=== PATIENT | male | born 1965 | race African-American/Black ===

== ENCOUNTER 2017-04-04 13:40 | Emergency (ER) | payer SELFPAY | END 2017-04-04 16:32 | disposition home or self-care (01) | LOC: D.ER 13:40 | DX: Z03.89 Encounter for observation for other suspected diseases and conditions ruled out (principal) ==

== ENCOUNTER 2019-05-02 13:29 | Emergency (ER) | payer MEDICAID ==
[2019-05-02 13:33] VITALS: BMI 25.9
[2019-05-02] MEDS ORDERED: BACLOFEN20 M1 PO (15:33)
[2019-05-02] MEDS ORDERED: VOLTAREN75 MG PO (15:33)
[2019-05-02 16:10] VITALS: BP 116/81
[2019-07-27 10:45] VITALS: BMI 27.9
== END 2019-05-02 16:10 | disposition home or self-care (01) ==
LOC: D.ER 13:29
DX: M62.838 Other muscle spasm (principal); M54.5 Low back pain

== ENCOUNTER 2019-07-26 19:14 | Inpatient (IN) | payer MEDICAID ==
[~2019-07-26] VITALS: Ht 175.3 cm; Wt 85.7 kg
[~2019-07-26 19:14] MED LIST: BACLOFEN20 M1 PO; VOLTAREN75 MG PO
[2019-07-26 20:58] VITALS: BP 125/79
[2019-07-26 21:12] LABS: BASOPHILS 0.1 % (0-2); EOSINOPHILS 0.4 % (0-7); HEMATOCRIT 40.9 % (42.0-54.0); HEMOGLOBIN 14.3 g/dL (13.5-17.5); IMMATURE GRANULOCYTES 0.3 % (0-5); LYMPHOCYTES 10.3 % (15-50); MCH 30.4 pg (26.0-34.0); MEAN PLATELET VOLUME 9.3 fL (7.4-10.4); MONOCYTES 7.7 % (2-11); NEUTROPHILS 81.2 % (40-80); PLATELET COUNT 272 10x3/uL (130-400); RDW 13.2 % (11.5-14.5); WBC 16.7 10x3/uL (4.8-10.8)
[2019-07-26 21:30] VITALS: BP 126/77
[2019-07-26 21:31] LABS: ALBUMIN 3.6 g/dL (3.4-5.0); ANION GAP 10.6 mmol/L (8-16); BILIRUBIN - TOTAL 0.54 mg/dL (0.2-1.3); CALCIUM 9.2 mg/dL (8.5-10.1); CARBON DIOXIDE 28.1 mmol/L (21.0-32.0); CREATININE - SERUM 1.1 mg/dL (0.6-1.3); POTASSIUM - SERUM 3.7 mmol/L (3.5-5.1); PROTEIN - SERUM 7.8 g/dL (6.4-8.2)
[2019-07-26 22:30] VITALS: BP 124/82
[2019-07-26 23:00] VITALS: BP 123/79
[2019-07-27 00:27] VITALS: BP 111/74; BMI 27.9
[2019-07-27 04:17] VITALS: BP 110/70
[2019-07-27 05:59] LABS: BASOPHILS 0.1 % (0-2); EOSINOPHILS 0 % (0-7); HEMATOCRIT 38.8 % (42.0-54.0); HEMOGLOBIN 13.5 g/dL (13.5-17.5); IMMATURE GRANULOCYTES 0.2 % (0-5); LYMPHOCYTES 4.5 % (15-50); MCH 29.9 pg (26.0-34.0); MCHC 34.8 g/dL (31.0-37.0); MCV 85.8 fL (80.0-100.0); MEAN PLATELET VOLUME 9.4 fL (7.4-10.4); NEUTROPHILS 94.2 % (40-80); PLATELET COUNT 284 10x3/uL (130-400); RBC 4.52 10x6/uL (4.20-6.10); RDW 13.2 % (11.5-14.5); WBC 14.2 10x3/uL (4.8-10.8)
[2019-07-27 06:33] LABS: ALBUMIN 3.1 g/dL (3.4-5.0); ALKALINE PHOSPHATASE 75 U/L (46-116); ALT (SGPT) 16 U/L (10-68); BILIRUBIN - TOTAL 0.39 mg/dL (0.2-1.3); CALC OSMOLALITY 280 mosm/kg (275-300); CARBON DIOXIDE 24.2 mmol/L (21.0-32.0); CHLORIDE - SERUM 108 mmol/L (98-107); GLUCOSE 130 mg/dL (74-106); PHOSPHOROUS 4.1 mg/dL (2.5-4.9); PROTEIN - SERUM 7.2 g/dL (6.4-8.2); SODIUM 140 mmol/L (136-145); UREA NITROGEN 12 mg/dL (7-18); eGFR NON AFRICAN AMERICAN 83 mL/min (90-120)
--- NOTE | 2019-07-27 07:10 | NUR ---
REPORT RECEIVED FROM PROCESS INSPECTOR AND PATIENT CARE ASSUMED. PATIENT LAYING IN BED ON BACK AWAKE , ALERT AND ORIENTED X 4. PATIENT DENIES ANY NEEDS OR PAIN AND IS VERY TALKATIVE. WILL CONTINUE WITH PLAN OF CARE. SR UP X 2 BED IN LOW POSITION AND CALL LIGHT IN REACH.
[2019-07-27 09:26] LABS: MONO NEGATIVE (NEGATIVE)
[2019-07-27 09:39] VITALS: BP 95/69
[2019-07-27 10:45] VITALS: Ht 175.3 cm; Wt 85.7 kg
[2019-07-27 11:05] VITALS: BP 101/63
--- NOTE | 2019-07-27 11:36 | NUR ---
PATIENT LAYING IN BED TALKING ON TELEPHONE. PATIENT REFUSES SHOWER. PATIENT IS STABLE AND VSS. PATIENT DENIES ANY NEEDS OR PAIN. WILL CONTINUE TO MONITOR. SR UP X 2 BED IN LOW POSITION AND CALL LIGHT IN REACH.
[2019-07-27 13:07] LABS: APPEARANCE CLEAR (CLEAR); BILIRUBIN NEGATIVE (NEGATIVE); COLOR YELLOW (YELLOW); GLUCOSE 1000 mg/dL (NEGATIVE); KETONE NEGATIVE (NEGATIVE); NITRITE NEGATIVE (NEGATIVE); PROTEIN NEGATIVE (NEGATIVE); SPECIFIC GRAVITY 1.025 (1.005-1.020); UROBILINOGEN NORMAL (NORMAL)
--- NOTE | 2019-07-27 17:46 | NUR ---
PATIENT LAYING IN BED ON BACK TALKING ON PHONE. PATIENT IS STABLE AND VSS. PATIENT DENIES ANY NEEDS OR PAIN. WILL CONTINUE TO MONITOR. SR UP X 2 BED IN LOW POSITION AND CALL LIGHT IN REACH.
[2019-07-27 18:27] VITALS: BP 96/63
--- NOTE | 2019-07-27 19:04 | MORECARE ---
CASE MANAGEMENT DISCHARGE SUMMARY PATIENT: CAROLINA MELTON UNIT: [id number] ADM DATE: 07/26/19 AGE: 53 : 63 SEX: M ROOM/BED: D.1213 AUTHOR: CATARINA,DOC PHYSICIAN: REFERRING PHYSICIAN: MARLIN SANCHEZ MD DATE OF SERVICE: 07/27/19 Discharge Plan Patient Name: CAROLINA MELTON Facility: [facility]:[place] : 1965 Planned Disposition: Home Anticipated Discharge Date: Discharge Date: Expected LOS: Initial Reviewer: [email or web address] Initial Review Date: 07/27/2019 Generated: 07/27/19 8:04 pm Comments DCP- Discharge Planning Updated by [email or web address]: Ludmila Huang on 07/27/19 6:[address] Patient Name: CAROLINA MELTON Admission Status: ER Accout number: [id number] Admission Date: 07-26-2019 : 1965 Admission Diagnosis: Attending: MARLIN SANCHEZ Current LOS: 1 Anticipated DC Date: Planned Disposition: Home Primary Insurance: MEDICAID [place] Discharge Planning Comments: CM met with patient at bedside after explaining CM role and obtaining verbal consent. Patient lives at home alone where he is independent with his care and plans to return there upon discharge. Patient feels this would be a safe discharge. CM discussed availability / needs of home health and medical equipment. Patient denies any discharge needs at this time. Patient states he will have his family drive him home upon discharge. CM will continue to follow and assist as needed with discharge planning / needs. Supervisor Last Model Department: Ludmila Huang DCA - Discharge Planning Initial Assessment Updated by [email or web address]: Ludmila Huang on 07/27/19 7:00 pm * Is the patient Alert and Oriented? Yes * How many steps to enter\exit or inside your home? * PCP NO PCP * Pharmacy [facility] * Preadmission Environment Home with Family * ADLs Independent * Equipment None * List name and contact numbers for known caregivers / representatives who currently or will assist patient after discharge: DEVANTE - [phone] [facility] [phone] * Verbal permission to speak to the caregivers and representatives has been obtained from the patient. Yes * Community resources currently utilized None * Additional services required to return to the preadmission environment? No * Can the patient safely return to the preadmission environment? Yes * Has this patient been hospitalized within the prior 30 days at any hospital? No Patient Name: CAROLINA MELTON Page [id number] at 1904 All edits/amendments must be made on the electronic document DICTATION DATE: 07/27/191903 OCTAVE BOARD ASSEMBLER: LING 07/27/191903 RPT#: [id number] DC DATE: STATUS: ADM IN [facility] [address] [place] [address] END OF REPORT
--- NOTE | 2019-07-27 19:15 | NUR ---
EVENING ROUNDS COMPLETE. PT LAYING IN BED, NO SIGNS OF DISTRESS. PT C/O PAIN 4/10 IN HIS THROAT. PT WISHES TO NOT TAKE ANYTHING FOR PAIN AT THIS TIME. CL IN REACH, BED IN LOWEST POSITION. CONT WITH POC.
[2019-07-28 03:37] VITALS: BP 118/65
[2019-07-28 06:08] LABS: HEMATOCRIT 37.8 % (42.0-54.0); HEMOGLOBIN 13.1 g/dL (13.5-17.5); MCH 29.8 pg (26.0-34.0); MCHC 34.7 g/dL (31.0-37.0); MCV 86.1 fL (80.0-100.0); MEAN PLATELET VOLUME 9.5 fL (7.4-10.4); PLATELET COUNT 319 10x3/uL (130-400); RBC 4.39 10x6/uL (4.20-6.10); RDW 13.4 % (11.5-14.5); WBC 24.9 10x3/uL (4.8-10.8)
[2019-07-28 06:15] LABS: ANION GAP 13.8 mmol/L (8-16); CALCIUM 8.8 mg/dL (8.5-10.1); CARBON DIOXIDE 24.9 mmol/L (21.0-32.0); CREATININE - SERUM 1.1 mg/dL (0.6-1.3); POTASSIUM - SERUM 3.7 mmol/L (3.5-5.1)
--- NOTE | 2019-07-28 07:11 | NUR ---
REPORT RECEIVED FROM ROOFER GYPSUM AND PATIENT CARE ASSUMED. PATIENT LAYING IN BED ON BACK WITH EYES CLOSED AND BREATHING EVENLY. WILL CONTINUE WITH PLAN OF CARE. SR UP X 2 BED IN LOW POSITION AND CALL LIGHT IN REACH.
[2019-07-28 09:29] LABS: LYMPHOCYTES 8 % (15-50); MONOCYTES 8 % (2-11); NEUTROPHILS 82 % (40-80); PLATELET ESTIMATE NORMAL; ROULEAUX OCC
[2019-07-28] MEDS ORDERED: CLEOCIN HCL300 MG PO (10:22)
--- NOTE | 2019-07-28 11:09 | MORECARE ---
CASE MANAGEMENT DISCHARGE SUMMARY PATIENT: CAROLINA MELTON UNIT: [id number] ADM DATE: 07/26/19 AGE: 53 : 63 SEX: M ROOM/BED: D.1213 AUTHOR: CATARINA,DOC PHYSICIAN: REFERRING PHYSICIAN: MARLIN SANCHEZ MD DATE OF SERVICE: 07/28/19 Discharge Plan Patient Name: CAROLINA MELTON Facility: [facility]:[place] : 1965 Planned Disposition: Home Anticipated Discharge Date: Discharge Date: Expected LOS: Initial Reviewer: [email or web address] Initial Review Date: 07/27/2019 Generated: 07/28/19 12:09 pm Comments DCP- Discharge Planning Updated by [email or web address]: Rani Anne on 07/28/19 10:[address] Discharge has been canceled due to positive blood cultures. Further testing will be required prior to discharge. Rani Anne RN, [facility] DCP- Discharge Planning Updated by [email or web address]: Ludmila Huang on 07/27/19 6:[address] Patient Name: CAROLINA MELTON Admission Status: ER Accout number: [id number] Admission Date: 07-26-2019 : 1965 Admission Diagnosis: Attending: MARLIN SANCHEZ Current LOS: 1 Anticipated DC Date: Planned Disposition: Home Primary Insurance: MEDICAID [place] Discharge Planning Comments: CM met with patient at bedside after explaining CM role and obtaining verbal consent. Patient lives at home alone where he is independent with his care and plans to return there upon discharge. Patient feels this would be a safe discharge. CM discussed availability / needs of home health and medical equipment. Patient denies any discharge needs at this time. Patient states he will have his family drive him home upon discharge. CM will continue to follow and assist as needed with discharge planning / needs. Director Talent Management: Ludmila Huang DCPIA - Discharge Planning Initial Assessment Updated by [email or web address]: Ludmila Huang on 07/27/19 7:00 pm * Is the patient Alert and Oriented? Yes * How many steps to enter\exit or inside your home? * PCP NO PCP * [facility]acy [facility] * Preadmission Environment Home with Family * ADLs Independent * Equipment None * List name and contact numbers for known caregivers / representatives who currently or will assist patient after discharge: DEVANTE [phone] [facility] [phone] * Verbal permission to speak to the caregivers and representatives has been obtained from the patient. Yes * Community resources currently utilized None * Additional services required to return to the preadmission environment? No * Can the patient safely return to the preadmission environment? Yes * Has this patient been hospitalized within the prior 30 days at any hospital? No Last DP export: 07/27/19 6:04 p Patient Name: CAROLINA MELTON Page 36553 at 1109 All edits/amendments must be made on the electronic document DICTATION DATE: 07/28/191108 MICROSTRATEGY DEVELOPER: LING 07/28/191108 RPT#: [id number] DC DATE: STATUS: ADM IN [facility] [address] [place] [address] END OF REPORT
[2019-07-28 12:09] LABS: EBV - EARLY ANTIGEN AB IGG 14.5 U/mL (0.0-8.9); EBV VIRAL CAPSID AB IGM <36.0 U/mL (0.0-35.9)
[2019-07-28 14:47] VITALS: BP 113/68
--- NOTE | 2019-07-28 19:20 | NUR ---
EVENING ROUNDS COMPLETE, PT LAYING IN BED, NO SIGNS OF DISTRESS. VSS, NO C/O PAIN AT THIS TIME. CL IN REACH, BED IN LOWEST POSITION. CONT WITH POC.
[2019-07-28 20:25] VITALS: BP 116/78
[2019-07-29 04:24] VITALS: BP 110/60
[2019-07-29 06:11] LABS: CALC OSMOLALITY 287 mosm/kg (275-300); CALCIUM 8.6 mg/dL (8.5-10.1); CARBON DIOXIDE 26.8 mmol/L (21.0-32.0); CHLORIDE - SERUM 107 mmol/L (98-107); CREATININE - SERUM 0.9 mg/dL (0.6-1.3); GLUCOSE 119 mg/dL (74-106); POTASSIUM - SERUM 3.7 mmol/L (3.5-5.1); SODIUM 143 mmol/L (136-145); UREA NITROGEN 18 mg/dL (7-18); eGFR NON AFRICAN AMERICAN > 90 mL/min (90-120)
[2019-07-29 06:41] LABS: BASOPHILS 0 % (0-2); EOSINOPHILS 0 % (0-7); HEMATOCRIT 35.7 % (42.0-54.0); HEMOGLOBIN 12.3 g/dL (13.5-17.5); IMMATURE GRANULOCYTES 0.5 % (0-5); LYMPHOCYTES 3.3 % (15-50); MCH 29.6 pg (26.0-34.0); MCHC 34.5 g/dL (31.0-37.0); MEAN PLATELET VOLUME 9.8 fL (7.4-10.4); MONOCYTES 2.6 % (2-11); NEUTROPHILS 93.6 % (40-80); PLATELET COUNT 321 10x3/uL (130-400); RBC 4.15 10x6/uL (4.20-6.10); RDW 13.3 % (11.5-14.5); WBC 23.1 10x3/uL (4.8-10.8)
--- NOTE | 2019-07-29 07:10 | NUR ---
REPORT RECIEVED FROM RADIUS GRINDER AND PATIENT CARE ASSUMED. PATIENT LAYING IN BED ON BACK WITH EYES CLOSED AND BREATHING EVENLY. PATIENT IS STABLE AND VSS. WILL CONTINUE TO MONITOR. SR UP X 2 BED IN LOW POSITION AND CALL LIGHT IN REACH.
--- NOTE | 2019-07-29 13:00 | NUR ---
PATIENT UP TO SHOWER . COMPLETE LINEN CHANGE COMPLETED WITH CLEAN CLOTHES .
--- NOTE | 2019-07-29 17:22 | NUR ---
PATIENT IS STABLE AND VSS. AT BS. WILL CONTINUE TO MONITOR. SR UP X 2 BED IN LOW POSITION AND CALL LIGHT IN REACH.
[2019-07-29 19:38] VITALS: BP 93/62
[2019-07-30] VITALS: BP 109/67
[2019-07-30 04:00] VITALS: BP 101/56
[2019-07-30 06:57] LABS: BASOPHILS 0.1 % (0-2); EOSINOPHILS 0.1 % (0-7); HEMATOCRIT 35.7 % (42.0-54.0); IMMATURE GRANULOCYTES 1.2 % (0-5); LYMPHOCYTES 15.9 % (15-50); MCH 29.3 pg (26.0-34.0); MCHC 33.6 g/dL (31.0-37.0); MCV 87.3 fL (80.0-100.0); MEAN PLATELET VOLUME 9.5 fL (7.4-10.4); MONOCYTES 10.7 % (2-11); PLATELET COUNT 286 10x3/uL (130-400); RBC 4.09 10x6/uL (4.20-6.10); RDW 13.6 % (11.5-14.5)
[2019-07-30 07:03] LABS: WBC 14.3 10x3/uL (4.8-10.8)
[2019-07-30 07:08] VITALS: BP 99/70
--- NOTE | 2019-07-30 07:20 | NUR ---
PT RESTING IN BED, VSS AND WNL. SHIFT ASSESSMENT PERFORMED. DENIES ANY NEEDS AT THIS TIME, WILL CONT TO FOLLOW POC
[2019-07-30 07:23] LABS: CALC OSMOLALITY 287 mosm/kg (275-300); CALCIUM 8.1 mg/dL (8.5-10.1); CARBON DIOXIDE 28.9 mmol/L (21.0-32.0); CHLORIDE - SERUM 108 mmol/L (98-107); CREATININE - SERUM 0.9 mg/dL (0.6-1.3); GLUCOSE 106 mg/dL (74-106); POTASSIUM - SERUM 3.4 mmol/L (3.5-5.1); SODIUM 144 mmol/L (136-145); UREA NITROGEN 14 mg/dL (7-18); eGFR NON AFRICAN AMERICAN > 90 mL/min (90-120)
--- NOTE | 2019-07-30 10:35 | NUR ---
NUTRITION FOLLOW UP: INTEVIEW: Patient stated he has a good appetite. He denied N/V/D/C. He stated that it hurts to swallow due to sore throat. Denied need for softer diet. DIET: Regular Diet PO INTAKE: 100% x 4 meals WT: 07/27- 189 lbs, no new wt BM: x 1 on 07/27 MEDS: Protonix IVF: NaCl @ 50 ml/hr LABS: K-3.4(L), Chloride-108(H), Calcium-8.1(L) GOALS: PO intake >/= 75%, BM q 3 days, stable wt DHS, and nutrition labs WNL Will continue to monitor closely Clinical Dietitian Following
--- NOTE | 2019-07-30 10:47 | EC ---
PATIENT:CAROLINA MELTON DATE OF SERVICE: 07/26/19 SEX: M MEDICAL RECORD: [id number] DATE OF : [birth year] LOCATION:D.M3 D.120 AGE OF PATIENT: 53 ADMISSION DATE: 07/26/19 REFERRING PHYSICIAN: INTERPRETING PHYSICIAN: EDILSON YUSUF MD ECHOCARDIOGRAM REPORT ECHO CHARGES 4 ECHO COMPLETE Date: 07/28/19 CLINICAL DIAGNOSIS: R/O VEGETATION ECHOCARDIOGRAPHIC MEASUREMENTS (adult normal given) AC root (d.<3.7cm) 3.7 cm LV Septum d (<1.2 cm> 1.1 cm Valve Excursion 2.1 cm LV Septum (systole) 1.9 cm Left Atria (s.<4.0cm> 3.5 cm LVPW d(<1.2cm) 1.3 cm RV (d.<2.3cm) 2.3 cm LVPW (sytole) 1.9 cm LV diastole(<5.6CM) 5.9 cm MV E-F(>70mm/sec) cm LV systole 3.4 cm LVOT Diameter 2.0 cm MV exc.(>10mm) cm Est.ejection fraction (50-75%) % DOPPLER: LVIT cm/sec A 79.0 cm/sec E 94.0 cm/sec LA cm/sec RVSP 26.4 mmHg LVOT 126 cm/sec AOP1/2T m/s Asc. Ao 188 cm/sec RVOT 74.0 cm/sec RA cm/sec PA 117 cm/sec AV Gradient Peak 14.1 mmHg AV Mean 6.8 mmHg AV Area 2.2 cm MV Gradient Peak 6.5 mmHg MV Mean 3.0 mmHg MV Area cm COMMENTS: Commercial Makeup Artist: 1 CHAO MCLEANOE Manager Configuration: 1 Dr. Yusuf TAPE# PACS Pericardial Effusion N DATE OF SERVICE: ECHOCARDIOGRAM FINDINGS: 1. Left ventricular chamber size is mildly dilated. Left ventricular systolic function is preserved at 60%. 2. Left atrium, right atrium, and right ventricular chamber sizes are within normal limits. 3. Valvular structures have normal structure and motion. 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 4. Doppler interrogation reveals moderate mitral regurgitation, mild tricuspid regurgitation, no other valvular insufficiency or stenosis. Pulmonary systolic pressure is estimated at 26 mmHg. 5. No evidence of pericardial effusion or left ventricular thrombus. TRANSINT:[id number] Voice Confirmation ID: [id number] DOCUMENT ID: [id number] EDILSON YUSUF MD at 1047 CC: [id number] DICTATION DATE: 07/28/19 1551 BAND SINGER: 07/28/19 2217 ADM IN [facility] [address] [place] [address]
--- NOTE | 2019-07-30 12:20 | NUR ---
PT RESTING IN BED, FAMILY AT BEDSIDE, WILL CONT TO FOLLOW POC
--- NOTE | 2019-07-30 18:00 | NUR ---
PT RESTING IN BED, DENIES ANY NEEDS AT THIS TIME, WILL CONT TO FOLLOW POC
[2019-07-30 20:02] VITALS: BP 97/73
[2019-07-30 23:50] VITALS: BP 90/60
[2019-07-31 03:38] VITALS: BP 116/80
[2019-07-31 07:08] LABS: CALC OSMOLALITY 290 mosm/kg (275-300); CALCIUM 8.6 mg/dL (8.5-10.1); CHLORIDE - SERUM 110 mmol/L (98-107); CREATININE - SERUM 0.9 mg/dL (0.6-1.3); GLUCOSE 110 mg/dL (74-106); SODIUM 145 mmol/L (136-145); UREA NITROGEN 15 mg/dL (7-18); eGFR NON AFRICAN AMERICAN > 90 mL/min (90-120)
[2019-07-31 07:27] LABS: HEMATOCRIT 37.9 % (42.0-54.0); MCH 29.7 pg (26.0-34.0); MCHC 34.3 g/dL (31.0-37.0); MCV 86.7 fL (80.0-100.0); MEAN PLATELET VOLUME 9.6 fL (7.4-10.4); PLATELET COUNT 295 10x3/uL (130-400); RBC 4.37 10x6/uL (4.20-6.10); RDW 13.4 % (11.5-14.5); WBC 11.9 10x3/uL (4.8-10.8)
--- NOTE | 2019-07-31 07:32 | NUR ---
AM ROUNDS- PT IN BED, A/O X4, RESP EVEN AND NONLABORED ON RA. LT WRIST IV INFUISNG NS AT 50CC/HR. BP A LITTLE HIGH, PT DENIES TAKING ANYTHING FOR HIS BP AT HOME. PT DENIES ANY NEED AT THIS TIME. CALL LIGHT IN REACH, NAD NOTED, WILL CONTINUE TO MONITOR.
[2019-07-31 07:41] VITALS: BP 140/91
[2019-07-31 08:24] LABS: EOSINOPHILS 1 % (0-7); LYMPHOCYTES 33 % (15-50); MONOCYTES 2 % (2-11); NEUTROPHILS 63 % (40-80); PLATELET ESTIMATE NORMAL
[2019-07-31 13:27] VITALS: BP 127/79
--- NOTE | 2019-07-31 15:35 | MORECARE ---
CASE MANAGEMENT DISCHARGE SUMMARY PATIENT: CAROLINA MELTON UNIT: [id number] ADM DATE: 07/26/19 AGE: 53 : 63 SEX: M ROOM/BED: D.1209 AUTHOR: LINDA ELMORE PHYSICIAN: REFERRING PHYSICIAN: MARLIN SANCHEZ MD DATE OF SERVICE: 07/31/19 Discharge Plan Patient Name: CAROLINA MELTON Facility: [facility]:[place] : 1965 Planned Disposition: Home Anticipated Discharge Date: Discharge Date: Expected LOS: Initial Reviewer: [email or web address] Initial Review Date: 07/27/2019 Generated: 07/31/19 4:35 pm Comments DCP- Discharge Planning Updated by [email or web address]: Suzette Stark on 07/31/19 2:[address] Patient Name: CAROLINA MELTON Encounter No: [id number] : 1965 Primary Insurance: MEDICAID [place] Anticipated DC Date: Planned Disposition: Home External Planned Provider: : DCP follow-up note: Patient and family in agreement with discharge plan. No changes to plan. Case management will follow and assist as needed. Suzette Stark DCP- Discharge Planning Updated by [email or web address]: Rani Anne on 07/28/19 10:[address] Discharge has been canceled due to positive blood cultures. Further testing will be required prior to discharge. Rani Anne RN, [facility] DCP- Discharge Planning Updated by [email or web address]: Ludmila Huang on 07/27/19 6:[address] Patient Name: CAROLINA MELTON Admission Status: ER Accout number: [id number] Admission Date: 07-26-2019 : 1965 Admission Diagnosis: Attending: MARLIN SANCHEZ Current LOS: 1 Anticipated DC Date: Planned Disposition: Home Primary Insurance: MEDICAID [place] Discharge Planning Comments: CM met with patient at bedside after explaining CM role and obtaining verbal consent. Patient lives at home alone where he is independent with his care and plans to return there upon discharge. Patient feels this would be a safe discharge. CM discussed availability / needs of home health and medical equipment. Patient denies any discharge needs at this time. Patient states he will have his family drive him home upon discharge. CM will continue to follow and assist as needed with discharge planning / needs. Steel Post Installer Supervisor: Ludmila Huang DCPIA - Discharge Planning Initial Assessment Updated by [email or web address]: Ludmila Huang on 07/27/19 7:00 pm * Is the patient Alert and Oriented? Yes * How many steps to enter\exit or inside your home? * PCP NO PCP * [facility] * Preadmission Environment Home with Family * ADLs Independent * Equipment None * List name and contact numbers for known caregivers / representatives who currently or will assist patient after discharge: DEVANTE [phone] [facility] [phone] * Verbal permission to speak to the caregivers and representatives has been obtained from the patient. Yes * Community resources currently utilized None * Additional services required to return to the preadmission environment? No * Can the patient safely return to the preadmission environment? Yes * Has this patient been hospitalized within the prior 30 days at any hospital? No Last DP export: 07/28/19 10:09 a Patient Name: CAROLINA MELTON Page [id number] at 1535 All edits/amendments must be made on the electronic document DICTATION DATE: 07/31/191533 PERFUMER: LING 07/31/191533 RPT#: [id number] DC DATE: STATUS: ADM IN [facility] [address] [place] [address] END OF REPORT
--- NOTE | 2019-07-31 15:41 | NUR ---
PROVIDED VERBAL AND WRITTEN DISCHARGE TEACHING TO PT, WHO VERBALIZED UNDERSTANDING REGARDING TEACHING. D/C LT WRIST IV WITH CATHETER TIP INTACT. PT WILL NOTIFY NURSE WHEN READY FOR WHEELCHAIR.
--- NOTE | 2019-07-31 16:36 | NUR ---
PT DECLINED WHEELCHAIR, LEFT UNIT VIA AMBULATORY WITH ALL BELONGINGS, NAD NOTED.
--- NOTE | 2019-07-31 17:43 | MORECARE ---
CASE MANAGEMENT DISCHARGE SUMMARY PATIENT: CAROLINA MELTON UNIT: [id number] ADM DATE: 07/26/19 AGE: 53 : 63 SEX: M ROOM/BED: D.1209 AUTHOR: LINDA ELMORE PHYSICIAN: REFERRING PHYSICIAN: MARLIN SANCHEZ MD DATE OF SERVICE: 07/31/19 Discharge Plan Patient Name: CAROLINA MELTON Facility: [facility]:[place] : 1965 Planned Disposition: Home Anticipated Discharge Date: Discharge Date: 07/31/2019 Expected LOS: Initial Reviewer: [email or web address] Initial Review Date: 07/27/2019 Generated: 07/31/19 6:42 pm Comments DCP- Discharge Planning Updated by [email or web address]: Suzette Stark on 07/31/19 2:[address] Patient Name: CAROLINA MELTON Encounter No: [id number] : 1965 Primary Insurance: MEDICAID [place] Anticipated DC Date: Planned Disposition: Home External Planned Provider: : DCP follow-up note: Patient and family in agreement with discharge plan. No changes to plan. Case management will follow and assist as needed. Suzette Stark DCP- Discharge Planning Updated by [email or web address]: Rani Anne on 07/28/19 10:[address] Discharge has been canceled due to positive blood cultures. Further testing will be required prior to discharge. Rani Anne RN, [facility] DCP- Discharge Planning Updated by [email or web address]: Ludmila Huang on 07/27/19 6:[address] Patient Name: CAROLINA MELTON Admission Status: ER Accout number: [id number] Admission Date: 07-26-2019 : 1965 Admission Diagnosis: Attending: MARLIN SANCHEZ Current LOS: 1 Anticipated DC Date: Planned Disposition: Home Primary Insurance: MEDICAID [place] Discharge Planning Comments: CM met with patient at bedside after explaining CM role and obtaining verbal consent. Patient lives at home alone where he is independent with his care and plans to return there upon discharge. Patient feels this would be a safe discharge. CM discussed availability / needs of home health and medical equipment. Patient denies any discharge needs at this time. Patient states he will have his family drive him home upon discharge. CM will continue to follow and assist as needed with discharge planning / needs. Spring Setter: Ludmila Huang DCA - Discharge Planning Initial Assessment Updated by [email or web address]: Ludmila Huang on 07/27/19 7:00 pm * Is the patient Alert and Oriented? Yes * How many steps to enter\exit or inside your home? * PCP NO PCP * [facility]acy [facility] * Preadmission Environment Home with Family * ADLs Independent * Equipment None * List name and contact numbers for known caregivers / representatives who currently or will assist patient after discharge: ARCELIAKristi [phone] [facility] [phone] * Verbal permission to speak to the caregivers and representatives has been obtained from the patient. Yes * Community resources currently utilized None * Additional services required to return to the preadmission environment? No * Can the patient safely return to the preadmission environment? Yes * Has this patient been hospitalized within the prior 30 days at any hospital? No Last DP export: 07/31/19 2:35 p Patient Name: CAROLINA MELTON Page [id number] at 1743 All edits/amendments must be made on the electronic document DICTATION DATE: 07/31/191741 DIRECTOR UTILIZATION MANAGEMENT: LING 07/31/191741 RUST#: [id number] MD DATE:07/31/19 STATUS: DIS IN [facility] [address] [place] [address] END OF REPORT
== END 2019-07-31 16:37 | disposition home or self-care (01) | DRG 158 ==
LOC: D.ER 19:14 → D.M3 23:25
PROVIDERS: Family Medicine; ADMIT Internal Medicine Nephrology; ATTEND Internal Medicine Nephrology
DX: K04.7 Periapical abscess without sinus (principal); F17.213 Nicotine dependence, cigarettes, with withdrawal; J02.9 Acute pharyngitis, unspecified; R13.10 Dysphagia, unspecified; K02.9 Dental caries, unspecified